=== PATIENT | male | born 1960 | race Caucasian/White ===

== ENCOUNTER 2019-03-13 10:44 | Emergency (ER) | payer OTHER ==
[~2019-03-13] VITALS: Ht 182.9 cm; Wt 84.0 kg
[2019-03-13] MEDS ORDERED: MINERAL OIL ENEMA 133ML PR ONE (14:00)
[2019-03-13 14:06] LABS: CLARITY URINE CLEAR (CLEAR); COLOR URINE DARK YELLOW (YELLOW); KETONES URINE NEGATIVE (NEGATIVE); LEUKOCYTE ESTERASE URINE NEGATIVE (NEGATIVE); NITRITE URINE NEGATIVE (NEGATIVE); OCCULT BLOOD URINE 2+ (NEGATIVE); PH URINE 5.5 (4.5-8.0); PROTEIN URINE TRACE (NEGATIVE); SPECIFIC GRAVITY URINE 1.027 (1.005-1.030)
[2019-03-13] MEDS ORDERED: KETOROLAC 15MG/ML VIAL IM ONE (14:30)
[2019-03-13 14:45] VITALS: BP 138/97
== END 2019-03-13 15:24 | disposition home or self-care (01) ==
LOC: ER 11:01
DX: K59.00 Constipation, unspecified (principal); R10.9 Unspecified abdominal pain; R31.9 Hematuria, unspecified
CPT/HCPCS: 81003; 99283